=== PATIENT | female | born 1970 | race Caucasian/White ===

== ENCOUNTER 2024-05-24 09:37 | Outpatient (CLI) | payer OTHER, SELFPAY ==
[2024-05-24 10:35] LABS: Cholesterol 158 mg/dL (0-200); HDL Direct 64 mg/dL; Triglycerides 79 mg/dL (<150)
[2024-05-24 10:46] LABS: LDL Cholesterol Direct 75 mg/dL
[2024-05-24 10:48] LABS: Hemoglobin A1C 5.3 % (<5.7)
[2024-05-26 01:49] LABS: FSH 109.3 mIU/mL
[2024-06-01 03:24] LABS: Estradiol, Ultrasensitive 9 pg/mL
== END 2024-05-24 09:38 | disposition home or self-care (01) ==
LOC: ANHLAB 09:42
PROVIDERS: Visit Provider Student in an Organized Health Care Education/Training Program
DX: R39.15 Urgency of urination (principal); N95.1 Menopausal and female climacteric states
CPT/HCPCS: 36415; 80061; 82670; 83001; 83036; 84443; 87086